=== PATIENT | female | born 1975 | race Caucasian/White ===

== ENCOUNTER → 2018-01-15 | Outpatient (CLI) | payer OTHER ==
[~2018-01-15] MED LIST: DARV PO; IRONTAB5 PO
[2018-01-15 14:02] LABS: HEMATOCRIT 38.9 % (35.0-46.0); HEMOGLOBIN 13.2 GM/DL (11.6-15.3); MEAN CELL VOLUME 95.4 FL (80.0-100.0); MEAN CORPUSCULAR HEMOGLOBIN 32.4 PG (27.0-34.0); MEAN CORPUSCULAR HGB CONC 33.9 % (32.0-36.0); MEAN PLATELET VOLUME 9.5 FL (7.0-11.0); PLATELET COUNT 368 TH/MM3 (150-450); RED BLOOD COUNT 4.08 MIL/MM3 (4.00-5.30); RED CELL DISTRIBUTION WIDTH 12.6 % (11.6-17.2); WHITE BLOOD COUNT 7.6 TH/MM3 (4.0-11.0)
== END ==
LOC: PLAB 09:04
DX: N97.9 Female infertility, unspecified (principal)
CPT/HCPCS: 36415; 84443; 85027; 86077; 86592; 86705; 86762; 86803; 86850; 86870; 86900; 86901; 87340